=== PATIENT | female | born 2000 | race Caucasian/White ===

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

== ENCOUNTER 2024-10-21 16:36 | Observation (INO) | payer BC, OTHER ==
[2024-10-21 17:18] LABS: Appearance,Urine Cloudy (Clear); Bilirubin,Urine Negative (Negative); Blood,Urine Negative (Negative); Color,Urine Yellow; Glucose,Urine (UA) Negative (Negative); Ketones,Urine Trace (Negative); Leukocyte Esterase,Urine Large (Negative); Mucus,Urine Many /hpf; Nitrite,Urine Negative (Negative); PH, Urine 6.5 (5.0-8.0); Protein,Urine 1+ (Negative); Specific Gravity,Urine 1.033 (1.001-1.035); Squamous Epithelial Cell,Urine 25 /hpf (0-4); WBC,Urine 25 /hpf (0-5)
[2024-10-21 17:26] LABS: Creatinine,Urine Random 328.2 mg/dL; Protein/Creatinine Ratio,Urine 0.049
[2024-10-21] MEDS: LACTATED RINGERS 1,000 ML IV SCH ×2 (17:46→21:00)
[2024-10-21] MEDS: ACETAMINOPHEN IV (For NPO) 1,000 MG in EMPTY BAG 1 BAG IVPB STA (17:46)
[2024-10-21 18:03] LABS: INR 0.8 (<1.2); Prothrombin Time 9.3 sec (10.0-12.5)
[2024-10-21 18:04] LABS: ALT 20 U/L (4-34); AST 32 U/L (14-36); African American GFR (CKD) >90 (>60 ml/min/1.73 sqM); Blood Urea Nitrogen 11 mg/dL (7-17); LDH 241 U/L (120-246); Non-African American GFR(CKD) >90 (>60 ml/min/1.73 sqM); Uric Acid 5.8 mg/dL (3.7-7.4)
[2024-10-21 18:05] LABS: Partial Thromboplastin Time 20.8 sec (22.0-30.0)
[2024-10-21 18:08] LABS: Basophils % (A) 0 %; Eosinophils # (A) 0.1 k/uL (0-0.7); Eosinophils % (A) 2 %; HCT 29.5 % (34.0-46.0); HGB 9.3 gm/dL (11.4-16.0); Hypochromasia Marked; Lymphocytes # (A) 1.7 k/uL (1.0-4.8); Lymphocytes % (A) 19 %; MCH 23.3 pg (25.0-35.0); MCHC 31.6 g/dL (31.0-37.0); MCV 73.8 fL (80.0-100.0); Mean Platelet Volume 9.5; Microcytosis Slight; Monocytes # (A) 0.4 k/uL (0-1.0); Monocytes % (A) 5 %; Neutrophils # (A) 6.4 k/uL (1.3-7.7); Neutrophils % (A) 72 %; Platelet Count 236 k/uL (150-450); Poikilocytosis Slight; RBC 3.99 m/uL (3.80-5.40); RDW 15.5 % (11.5-15.5); WBC 8.9 k/uL (3.8-10.6)
[2024-10-21] MEDS: BETAMET ACET-BETAMETH SOD PHOS 6 MG/ML MDV IM SCH (19:12)
[2024-10-21] MEDS: NIFEdipine 10 MG CAP PO STA (19:12)
[2024-10-21] MEDS ORDERED: MORPHINE SULFATE 4 MG/ML SYRINGE IVP PRN (20:20)
[2024-10-21 22:09] VITALS: BP 128/68; PULSE 80; RESP 17; TEMP 98.1
[2024-10-21] MEDS: TERBUTALINE 1 MG/ML VIAL SQ STA (22:57)
[2024-10-21] MEDS ORDERED: TERBUTALINE 1 MG/ML VIAL SQ PRN (23:00)
[2024-10-22] MEDS: NIFEdipine 10 MG CAP PO SCH (00:22)
--- NOTE | 2024-10-22 04:24 | P.HPOB ---
History of Present Illness H&P Date: 10/22/24 Chief Complaint: Contractions Ms. Francis is a 24 year old at 32 weeks and 2 days (with DEBBY of 12/14/2024 by LMP consistent with 13 week US) who presented to triage with headache and blurry vision, as well as pelvic pressure. Upon arrival, she did have a few mild range blood pressures. Blurry vision resolved and headache improved with Tylenol. However, she was noted to be jarad every 2-4 minutes. She was given IV fluids with no improvement in contraction pattern. She did initially rate the contractions a 2/10. Her cervical exam was 3/50/-3. She was given Proc ardia 10mg every 6 hours as well as three doses of subcutaneous terbutaline, 0.25mg. Over the course of a few hours she did continue to make cervical change to 4/70/-3. She is also visibly more uncomfortable and now rating her pain 5/10. The has been essentially uncomplicated otherwise. PIH labs today were within normal limits, P:C ratio was 0.05. Obstetric history: 1 PTVD at 36 weeks (2016, male, 6#3oz), 1 PTVD at 36 weeks (2022, female, 6#3oz) Labs: blood type A negative (s/p rhogam at 28 weeks, 09/25/24), antibody screen negative, rubella immune, VDRL non-reactive, HBsAg negative, HIV negative, HCV Ab non-reactive, gonorrhea negative, chlamydia negative, [id number] negative, 1 hour GTT 10. s/p Tdap on 10/14/24. Past Medical History Additional Past Medical History / Comment(s): complex regional pain, seasonal allergies, laryngitis History of Any Multi-Drug Resistant Organisms: None Reported Past Surgical History: No Surgical Hx Reported Past Anesthesia/Blood Transfusion Reactions: No Reported Reaction Past Psychological History: Anxiety, Depression Smoking Status: Never smoker Past Alcohol Use History: None Reported Past Drug Use History: None Reported - Past Family History Mother Family Medical History: No Reported History Medications and Allergies Home Medications Medication Instructions Recorded Confirmed Type Ferrous Sulfate [Iron] 325 mg PO DAILY 10/21/24 10/21/24 History Vit No.179/Iron/Folic 1 each PO DAILY 10/21/24 10/21/24 History [ Tablet] Sertraline [Zoloft] 75 mg PO DAILY 10/21/24 10/21/24 History Allergies Allergy/AdvReac Type Severity Reaction Status Date / Time amoxicillin Allergy Rash/Hives Verified 10/21/24 16:45 venom-honey bee Allergy Anaphylaxis Verified 10/21/24 16:45 [bee venom (honey bee)] Exam Vital Signs Temp Pulse Resp BP Pulse Ox 10/21/24 22:02 98.1 F 80 17 128/68 98 Intake and Output 10/21/24 10/21/24 10/22/24 14:59 22:59 06:59 Other: Weight 113.398 kg Focused physical exam is performed. This is a healthy-appearing in no apparent distress. Breathing is non-labored. Abdomen is gravid and non-tender. Cervical exam is 4/70/-3. Extremities non-tender and non-edematous. heart tones are Category I and tocometer is graphing contractions every 2-4 minutes. Results Result Diagrams: 10/21/24 17:15 10/21/24 17:15 Abnormal Lab Results - Last 24 Hours (Table) 10/21/24 10/21/24 10/21/24 Range/Units 16:57 17:15 17:15 Hgb 9.3 L (11.4-16.0) gm/dL Hct 29.5 L (34.0-46.0) % MCV 73.8 L (80.0-100.0) fL MCH 23.3 L (25.0-35.0) pg PT 9.3 L (10.0-12.5) sec APTT 20.8 L (22.0-30.0) sec Fibrinogen 669 H (200-500) mg/dL Urine Appearance Cloudy H (Clear) Urine Protein 1+ H (Negative) Urine Ketones Trace H (Negative) Ur Leukocyte Esterase Large H (Negative) Urine WBC 25 H (0-5) /hpf Ur Squamous Epith Cells 25 H (0-4) /hpf Urine Mucus Many H (None) /hpf Assessment and Plan Assessment: 24 year old at 32 weeks and 2 days in labor Plan: 1. labor. s/p Procardia and Terbutaline x3. Made change from 3 to 4 centimeters. First dose of BMZ given. 2. Mild range BPs on arrival. PIH labs wnl, P:C 0.05. 3. Fetus. Reactive and reassuring FHTs on EFM. Dipso: Transfer accepted to by Dr. Pires at [facility]. Time with Patient: Greater than 30 (60 minutes)
== END 2024-10-22 05:32 ==
LOC: FBPOP 16:36 → 4FBP 20:24
PROVIDERS: ADMIT Obstetrics & Gynecology; ATTEND Obstetrics & Gynecology
DX: O60.03 Preterm labor without delivery, third trimester (principal); O99.343 Other mental disorders complicating pregnancy, third trimester; F32.A Depression, unspecified; F41.9 Anxiety disorder, unspecified; Z3A.32 32 weeks gestation of pregnancy; Z79.899 Other long term (current) drug therapy
CPT/HCPCS: 59025; 99215; 96361; 96365; 96374; 96372; 82570; 84156; 82565; 83615; 84450; 84460; 84520; 84550; 85025; 85384; 85610; 85730; 81001; 87086; G0378 ×2; J3105; J0131; J0702

== ENCOUNTER 2024-11-11 14:22 | Outpatient (CLI) | payer BC ==
[2024-11-11 19:28] VITALS: BP 124/75; PULSE 98; RESP 18; TEMP 98.4
--- NOTE | 2024-11-24 00:24 | P.MSEPDOC ---
Presenting Problems - Arrival Data Date of Arrival on Unit: 11/11/24 Time of Arrival on Unit: 14:25 Mode of Transport: Wheelchair - Complaint OB-Reason for Admission/Chief Complaint: Elevated Blood Pressure Medical History - Information : 3 Para: 2 Term: 0 : 2 Abortions: Spontaneous or Elective: 0 Number of Living Children: 2 - Gestational Age Gestational Age by DEBBY (wks/days): 35 Weeks and 2 Days - History Complications: Preeclampsia Review of Systems - Review of Systems Constitutional: No problems Breast: No problems ENT: No problems Cardiovascular: No problems Respiratory: No problems Gastrointestinal: No problems Genitourinary: No problems Musculoskeletal: No problems Neurological: No problems Skin: No problems Vital Signs - Temperature Temperature: 98.4 F Temperature Source: Temporal Artery Scan - Pulse Right Brachial Pulse Rate: 98 Pulse Assessment Method: Automatic Cuff - Respirations Respiratory Rate: 18 Oxygen Delivery Method: Room Air - Blood Pressure Right Arm Blood Pressure: 124/75 Blood Pressure Mean: 91 Blood Pressure Source: Automatic Cuff Medical Screen Scoring - Cervical Exam Dilation (cm): 3.5 Effacement (%): 50 Station: -3 Membranes: Intact - Uterine Contractions Intensity: Mild Resting: Soft to palpation - Assessment - Baby A Baseline FHR: 120 Heart Rate - NICHD Category: Category I (Normal) NST: Reactive Physician Notification - Physician Notified Physician Notified Date: 11/11/24 Physician Notified Time: 15:05 Physician: Svitlana Beasley New Order Received: Yes - Notification Comment Comment: D/C Home Maternal Triage Index - Maternal Triage Index Presenting for scheduled procedure w/no complaint: No - Stat/Priority 1 Stat Priority 1: No - Urgent/Priority 2 Urgent Priority 2: No - Prompt/Priority 3 Prompt Priority 3: No - Non-Urgent/Priority 4 Non-Urgent Priority 4: Yes Criteria Met for Priority 4: Pt states elevated blood pressure at home. Blurred vision at times. Headache for a few days but did not take any meds for the headache. Disposition - Disposition OB Disposition: Discharge to home Discharge Date: 11/11/24 Discharge Time: 15:52 I agree with the RN Medical Screening Exam: Yes Case reviewed; plan agreed upon as documented in EMR&OBIX.: Yes Diagnosis: RELATED CONDITIONS, UNSPECIFIED, THIRD TRIMESTER
== END 2024-11-11 15:55 | disposition home or self-care (01) ==
LOC: FBPOP 14:22
PROVIDERS: ATTEND Obstetrics & Gynecology Obstetrics
DX: O26.93 Pregnancy related conditions, unspecified, third trimester (principal); Z88.0 Allergy status to penicillin; Z91.030 Bee allergy status; Z3A.35 35 weeks gestation of pregnancy
CPT/HCPCS: 59025; 99213

== ENCOUNTER 2024-11-16 05:24 | Outpatient (CLI) | payer BC ==
[2024-11-16] MEDS: LACTATED RINGERS 1,000 ML IV ONE (06:29)
[2024-11-16 11:10] VITALS: BP 134/85; PULSE 87; RESP 16; TEMP 98.3
== END 2024-11-16 10:12 | disposition home or self-care (01) ==
LOC: FBPOP 05:24
PROVIDERS: ATTEND Obstetrics & Gynecology
DX: Z53.9 Procedure and treatment not carried out, unspecified reason (principal)
CPT/HCPCS: 59025; 96360; 96361; 99214

== ENCOUNTER 2024-11-16 22:55 | Inpatient (IN) | payer BC ==
[2024-11-16] MEDS ORDERED: TERBUTALINE 1 MG/ML VIAL SQ PRN (23:52)
[2024-11-16] MEDS ORDERED: miSOPROStoL 200 MCG TAB RECTAL PRN (23:52)
[2024-11-16] MEDS ORDERED: LIDOCAINE 0.5% (PF) 5 MG/ML (50 ML SDV) SQ PRN (23:52)
[2024-11-16] MEDS ORDERED: OXYTOCIN 10 UNIT/ML 1 ML VIAL IM PRN (23:52)
[2024-11-16] MEDS ORDERED: miSOPROStoL 200 MCG TAB PO PRN (23:52)
[2024-11-16] MEDS ORDERED: TRANEXAMIC 1,000 MG/100ML-NACL 1,000 MG in EMPTY BAG 1 BAG IV PRN (23:52)
[2024-11-16] MEDS ORDERED: CARBOPROST TROMETHAMINE 250 MCG/ML 1 ML AMP IM PRN (23:52)
[2024-11-17] MEDS ORDERED: BUTORPHANOL 1 MG/ML 1 ML VIAL IV PRN (00:03)
[2024-11-17] MEDS: LACTATED RINGERS 1,000 ML IV SCH (00:20)
[2024-11-17 00:37] LABS: Anisocytosis Slight; Basophils % (A) 0 %; Eosinophils # (A) 0.1 k/uL (0-0.7); Eosinophils % (A) 2 %; HCT 28.1 % (34.0-46.0); HGB 8.9 gm/dL (11.4-16.0); Hypochromasia Slight; Lymphocytes # (A) 1.9 k/uL (1.0-4.8); Lymphocytes % (A) 26 %; MCH 23.4 pg (25.0-35.0); MCHC 31.7 g/dL (31.0-37.0); MCV 73.9 fL (80.0-100.0); Mean Platelet Volume 10.8; Microcytosis Moderate; Monocytes # (A) 0.4 k/uL (0-1.0); Monocytes % (A) 5 %; Neutrophils # (A) 4.6 k/uL (1.3-7.7); Neutrophils % (A) 64 %; Platelet Count 227 k/uL (150-450); RBC 3.81 m/uL (3.80-5.40); RDW 18.2 % (11.5-15.5); WBC 7.1 k/uL (3.8-10.6)
--- NOTE | 2024-11-17 10:50 | P.HPOB ---
History of Present Illness H&P Date: 11/17/24 Chief Complaint: contractions 24 year old presents at 36 weeks 1 day with contractions. She has been to triage several times in the last few days complaining of contractions and has been 4/50/ballot. She was jarad last night every few minutes and her cervix is 5/70/ballotable. I admitted her and gave her a dose of iv pain medication and iv fluids. the contractions are now only 9-10 minutes apart and cervix remains unchanged. I will continue to keep her for observation as she does live 45 minutes away. heart tones category 1. Review of Systems All systems: negative Constitutional: Denies chills, Denies fever Eyes: denies blurred vision, denies pain Ears, nose, mouth and throat: Denies headache, Denies sore throat Cardiovascular: Denies chest pain, Denies shortness of breath Respiratory: Denies cough Gastrointestinal: Denies abdominal pain, Denies diarrhea, Denies nausea, Denies vomiting Genitourinary: Denies dysuria, Denies hematuria Musculoskeletal: Denies myalgias Integumentary: Denies pruritus, Denies rash Neurological: Denies numbness, Denies weakness Psychiatric: Denies anxiety, Denies depression Endocrine: Denies fatigue, Denies weight change Past Medical History Additional Past Medical History / Comment(s): complex regional pain, seasonal allergies, laryngitis. OB history: has had 2 previous deliveries at 36 weeks. History of Any Multi-Drug Resistant Organisms: None Reported Past Surgical History: No Surgical Hx Reported Past Anesthesia/Blood Transfusion Reactions: No Reported Reaction Past Psychological History: Anxiety, Depression Smoking Status: Never smoker Past Alcohol Use History: None Reported Past Drug Use History: None Reported - Past Family History Mother Family Medical History: No Reported History Medications and Allergies Home Medications Medication Instructions Recorded Confirmed Type Ferrous Sulfate [Iron] 325 mg PO DAILY 10/21/24 11/16/24 History Vit No.179/Iron/Folic 1 each PO DAILY 10/21/24 11/16/24 History [ Tablet] Sertraline [Zoloft] 75 mg PO DAILY 10/21/24 11/16/24 History NIFEdipine [Procardia] 1 tab PO Q6HR 11/16/24 11/16/24 History Allergies Allergy/AdvReac Type Severity Reaction Status Date / Time amoxicillin Allergy Rash/Hives Verified 11/11/24 18:54 venom-honey bee Allergy Anaphylaxis Verified 11/11/24 18:54 [bee venom (honey bee)] Exam Osteopathic Statement: *. No significant issues noted on an osteopathic structural exam other than those noted in the History and Physical/Consult. Vital Signs Temp Pulse Resp BP Pulse Ox 11/16/24 23:51 98.0 F 83 16 138/74 98 11/16/24 23:45 98 F 83 16 138/74 98 Intake and Output 11/16/24 11/17/24 11/17/24 22:59 06:59 14:59 Intake Total 400 Balance 400 Intake: Oral 400 Other: # Voids 3 Weight 115.666 kg Heart: Regular rate and rhythm Lungs: Clear to auscultation bilaterally Abdomen: Soft, nontender Extremities: Negative Homans sign Results Result Diagrams: 11/17/24 00:00 Abnormal Lab Results - Last 24 Hours (Table) 11/17/24 Range/Units 00:00 Hgb 8.9 L (11.4-16.0) gm/dL Hct 28.1 L (34.0-46.0) % MCV 73.9 L (80.0-100.0) fL MCH 23.4 L (25.0-35.0) pg RDW 18.2 H (11.5-15.5) % Assessment and Plan (1) contractions Current Visit: Yes Status: Acute Code(s): O47.00 - FALSE LABOR BEFORE 37 COMPLETED WEEKS OF GEST, UNSP TRI SNOMED Code(s): 535553181 Plan: 1. cont iv abx 2. cont to monitor
[2024-11-17] MEDS: NIFEdipine 10 MG CAP PO SCH (20:55)
[2024-11-18] MEDS: NALBUPHINE 10 MG/ML (10 ML MDV) IV PRN (15:11)
[2024-11-18] MEDS: OXYTOCIN 30 UNITS/500 ML NS 30 UNIT in SALINE 1 500ML.BAG IV SCH (15:14)
[2024-11-18] MEDS ORDERED: diphenhydrAMINE 50 MG CAP PO PRN (17:25)
[2024-11-18] MEDS ORDERED: SIMETHICONE 80 MG CHEWABLE PO PRN (17:25)
[2024-11-18] MEDS ORDERED: diphenhydrAMINE 50 MG/ML 1 ML VIAL IVP PRN ×2 (17:25)
[2024-11-18] MEDS ORDERED: BENZOCAINE/MENTHOL SPRAY 1 GM/SPRAY AEROSOL TOPICAL PRN (17:25)
[2024-11-18] MEDS ORDERED: diphenhydrAMINE 25 MG CAP PO PRN (17:25)
[2024-11-18] MEDS ORDERED: LANOLIN CREAM 1 GM TUBE TOPICAL PRN (17:25)
[2024-11-18] MEDS ORDERED: ZOLPIDEM 5 MG TAB PO PRN (17:25)
[2024-11-18] MEDS ORDERED: HYDROCORTISONE 2.5% RECTAL CREAM 30 GM TUBE RECTAL PRN (17:25)
--- NOTE | 2024-11-18 17:25 | P.PROBDLV ---
Vaginal Delivery Note - . Vaginal Delivery Note: Date of service 11/18/2024 Endings viable male infant delivered at 1708, weight of 7 pounds 5 ounces 24-year-old 3 para 0-2-0-2 that presented to labor and delivery at 36 and 1 sevenths weeks after multiple triage visits for continued contractions. Patient was noted to make a small manage change to 5 cm. Patient was noting contractions every 3 to 5 minutes. Patient noted contractions to be more uncomfortable therefore she was examined and found to be 6+ centimeters. Patient underwent amniotomy and copious clear fluid was obtained. stomach scalp electrode was placed to continue close observation of status. Patient made good progress towards 7 cm. She did receive Nubain x 1 for discomfort. Patient progressed to complete began pushing and had a normal spontaneous vaginal delivery of a viable male infant at 1708, weight of 7 pounds 5 ounces, Apgars of 9 and 9 at 1 and 5 minutes respectively. A loose nuchal cord was noted at the time of delivery and reduced at the perineum. After 2- minute delay the umbilical cord was doubly clamped and cut. The stent was delivered spontaneously intact with three-vessel cord being noted. Uterus was noted to be firm although a good trickle was appreciated status post delivery. Red rubber catheter was used to drain the bladder of clear yellow urine. Uterus was noticed to be firm and at the umbilicus. Continued bleeding was appreciated therefore Methergine was given x 1. No vaginal lacerations were appreciated on complete inspection of the vaginal vault. All counts were to be correct x 2. Patient and tolerated delivery well and are resting comfortably.
[2024-11-18] MEDS: METHYLERGONOVINE 0.2 MG/ML 1 ML AMP IM PRN (17:26)
[2024-11-18] MEDS: IBUPROFEN 800 MG TAB PO SCH (20:32)
[2024-11-18] MEDS: SERTRALINE 25 MG TAB PO SCH (21:57)
[2024-11-18] MEDS: SENNOSIDES-DOCUSATE SODIUM 1 EACH TAB PO SCH (21:57)
[2024-11-19] MEDS: ACETAMINOPHEN TAB 500 MG TAB PO SCH (01:27)
[2024-11-19 06:16] LABS: Basophils # (A) 0.04 10*3/uL (0.00-0.10); Basophils % (A) 0.4 %; Eosinophils # (A) 0.07 10*3/uL (0.04-0.35); Eosinophils % (A) 0.8 %; HCT 24.5 % (37.2-46.3); HGB 7.6 g/dL (12.0-15.0); Lymphocytes # (A) 1.82 10*3/uL (0.90-5.00); Lymphocytes % (A) 20.4 %; MCH 23.5 pg (27.0-32.0); MCV 75.9 fL (80.0-97.0); Mean Platelet Volume 11.6 fL (9.5-12.2); Monocytes # (A) 0.62 10*3/uL (0.20-1.00); Monocytes % (A) 6.9 %; Neutrophils # (A) 6.36 10*3/uL (1.80-7.70); Neutrophils % (A) 71.2 %; Platelet Count 190 10*3/uL (140-440); RBC 3.23 10*6/uL (4.10-5.20); RDW 18.7 % (11.5-14.5); WBC 8.94 10*3/uL (4.50-10.00)
[2024-11-19] MEDS: FERROUS SULFATE 325 MG TAB PO SCH (08:12)
[2024-11-19] MEDS: PRENATAL VIT-IRON-FOLIC ACID 1 EACH TABLET PO SCH (08:14)
--- NOTE | 2024-11-19 08:28 | P.PNOBGVD ---
Subjective - Subjective Principal diagnosis: day #1 Interval history: Patient is doing well . She is ambulating and voiding without difficulty. remains in the room. Lochia is minimal to moderate Pain is well-controlled Patient reports: Reports appetite normal, Reports voiding normally, Reports pain well controlled, Reports ambulating normally : doing well Objective - Latest Vital Signs Latest vital signs: Vital Signs Temp Pulse Resp BP Pulse Ox 11/19/24 07:49 97.9 F 66 17 134/79 11/19/24 03:36 98.2 F 65 16 147/94 99 11/19/24 00:00 98.5 F 71 16 127/83 99 11/18/24 19:40 61 16 145/74 11/18/24 19:25 97.4 F L 70 16 145/66 11/18/24 19:00 67 16 139/65 11/18/24 18:45 69 16 137/61 11/18/24 18:30 69 16 147/67 11/18/24 18:15 62 16 157/71 11/18/24 18:00 67 16 149/66 11/18/24 17:45 75 16 149/71 11/18/24 17:30 97.2 F L 88 16 132/78 Intake and Output 11/18/24 11/19/24 11/19/24 22:59 06:59 14:59 Output Total 328 Balance -328 Output: Output, Quantitative 328 Blood Loss Other: # Voids 1 2 # Bowel Movements 0 - Exam Extremities: Present: normal, edema Abdomen: Present: normal appearance, soft Uterus: Present: normal, firm - Labs Labs: Abnormal Lab Results - Last 24 Hours (Table) 11/19/24 Range/Units 05:46 RBC 3.23 L (4.10-5.20) 10*6/uL Hgb 7.6 L (12.0-15.0) g/dL Hct 24.5 L (37.2-46.3) % MCV 75.9 L (80.0-97.0) fL MCH 23.5 L (27.0-32.0) pg MCHC 31.0 L (32.0-37.0) g/dL Assessment and Plan (1) 36 weeks gestation of Current Visit: Yes Status: Acute Code(s): Z3A.36 - 36 WEEKS GESTATION OF SNOMED Code(s): 56404131 (2) labor Current Visit: Yes Status: Acute Code(s): O60.00 - LABOR WITHOUT DELIVERY, UNSPECIFIED TRIMESTER SNOMED Code(s): 5003378 (3) Status post vaginal delivery Current Visit: Yes Status: Acute Code(s): FFZ3961 - SNOMED Code(s): 644116580 Plan: Patient is doing well . Plan to continue routine care. Awaiting pediatric evaluation of Given gestational age encouraged patient to stay an additional day.
[2024-11-19] MEDS ORDERED: SERTRALINE 25 MG TAB PO SCH (09:00)
--- NOTE | 2024-11-20 08:38 | P.DS ---
Providers Date of admission: 11/16/24 23:46 Expected date of discharge: 11/20/24 Attending physician: Svitlana Beasley Primary care physician: Stated None - Discharge Diagnosis(es) (1) 36 weeks gestation of Current Visit: Yes Status: Acute (2) labor Current Visit: Yes Status: Acute (3) Status post vaginal delivery Current Visit: Yes Status: Acute Hospital Course: 24-year-old G3 now para 3 that presented to labor and delivery Monday with complaints of contractions. Patient was seen multiple times through the weekend with complaints of contractions when was noted to be 5 cm on Monday. Patient was admitted for observation. In the morning patient was noted to be 6 cm therefore amniotomy was performed. Patient was noted to be jarad every 2 to 5 minutes. Patient noted contractions to be increasingly uncomfortable and was breathing through them. Patient had been receiving routine care with complications of contractions at 32 weeks and subsequent transfer to tertiary care center and was given betamethasone x 2. For full detail in this patient please see the dictated history and physical. Patient progressed to complete began pushing and had a normal spontaneous vaginal delivery of a viable male at 1708 on 11/18, weight of 7 pounds 5 ounces. Mom and have done well . In this day #2 she is ambulating and voiding without difficulty. She is tolerating regular diet without nausea or vomiting. States her pain is well-controlled. She denies concerns. She would like discharge home. Patient Condition at Discharge: Good Plan - Discharge Summary New Discharge Prescriptions: No Action Sertraline [Zoloft] 75 mg PO DAILY Vit No.179/Iron/Folic [ Tablet] 1 each PO DAILY NIFEdipine [Procardia] 1 tab PO Q6HR Ferrous Sulfate [Iron] 325 mg PO DAILY Discharge Medication List Ferrous Sulfate [Iron] 325 mg PO DAILY 10/21/24 [History] Vit No.179/Iron/Folic [ Tablet] 1 each PO DAILY 10/21/24 [History] Sertraline [Zoloft] 75 mg PO DAILY 10/21/24 [History] NIFEdipine [Procardia] 1 tab PO Q6HR 11/16/24 [History] Follow up Appointment(s)/Referral(s): Svitlana Beasley DO [Doctor of Osteopathic Medicine] - 12/31/24 1:00 pm Patient Instructions/Handouts: Vaginal Delivery (GEN), Vaginal Delivery (DC) Activity/Diet/Wound Care/Special Instructions: Lipv-[id number]-[id number] ibuprofen 600 mg or 3 tablets every 6 hours as needed for pain. No tub baths or intercourse until 6 weeks . bleeding instructions are reviewed with patient. Routine check at 6 weeks. Should she have a concerns prior to his appointment she is urged to call the office and be seen prior. Discharge Disposition: HOME SELF-CARE
[2024-11-20 08:49] VITALS: RESP 16; TEMP 98.2
[2024-11-20 10:26] VITALS: BP 132/82; PULSE 77
== END 2024-11-20 12:00 | disposition home or self-care (01) | DRG 807 ==
LOC: FBPOP 22:55 → 4FBP 23:46
PROVIDERS: ADMIT Obstetrics & Gynecology; ATTEND Obstetrics & Gynecology Obstetrics
PROC: 10E0XZZ Delivery of Products of Conception, External Approach (ICD-10-PCS; principal; 2024-11-18)
PROC: 10H073Z Insertion of Monitoring Electrode into Products of Conception, Via Natural or Artificial Opening (ICD-10-PCS; principal; 2024-11-18)
PROC: 4A1H74Z Monitoring of Products of Conception, Cardiac Electrical Activity, Via Natural or Artificial Opening (ICD-10-PCS; principal; 2024-11-18)
PROC: 10907ZC Drainage of Amniotic Fluid, Therapeutic from Products of Conception, Via Natural or Artificial Opening (ICD-10-PCS; principal; 2024-11-18)
DX: O60.14X0 Preterm labor third trimester with preterm delivery third trimester, not applicable or unspecified (principal); O99.344 Other mental disorders complicating childbirth; F32.A Depression, unspecified; O69.81X0 Labor and delivery complicated by cord around neck, without compression, not applicable or unspecified; F41.9 Anxiety disorder, unspecified; Z86.69 Personal history of other diseases of the nervous system and sense organs; Z88.0 Allergy status to penicillin; Z79.899 Other long term (current) drug therapy; Z3A.36 36 weeks gestation of pregnancy; Z37.0 Single live birth
CPT/HCPCS: 59025; 85025; 86850; 86900; 86901; 99213